=== PATIENT | male | born 1995 | race Caucasian/White ===

== ENCOUNTER → 2017-11-19 | Outpatient (REF) | payer BC | LOC: M LAB REF 16:43 | DX: J02.9 Acute pharyngitis, unspecified (principal) | CPT/HCPCS: 87070 ==

== ENCOUNTER 2021-11-23 10:13 | Day surgery (SDC) | payer OTHER ==
[~2021-11-23] VITALS: Ht 175.3 cm; Wt 100.2 kg
[~2021-11-23 10:13] MED LIST: CELE100C PO; FLON1SPR; LEXA1TAB PO; LR 1,000 ML IV ONE; LUNE2TAB23 PO; TELM1TAB33 PO; TIZA4CAP PO; ZYRT10TA12 PO
[2021-11-23] MEDS ORDERED: LIDOCAINE W/EPINEPHRINE 1% 20ML VIAL As Ordered ONE ×2 (11:10→11:11)
[2021-11-23] MEDS ORDERED: OXYMETAZOLINE 0.05% NASAL SPRAY (AFRIN) As Ordered ONE (11:11)
[2021-11-23] MEDS ORDERED: COCAINE 4% 4ML NASAL SOLUTION BTL As Ordered ONE (11:11)
[2021-11-23] MEDS ORDERED: fentaNYL 250 MCG/5 ML INJECTION As Ordered ONE (11:20)
[2021-11-23] MEDS ORDERED: propofoL 200 MG/20 ML VIAL As Ordered ONE (11:20)
[2021-11-23] MEDS ORDERED: dexameTHASONE 4 MG/ML 1ML VIAL (J1100 PER 1MG) As Ordered ONE (11:20)
[2021-11-23] MEDS ORDERED: ROCURONIUM BROMIDE 50 MG/5 ML VIAL As Ordered ONE (11:20)
[2021-11-23] MEDS ORDERED: MIDAZOLAM INJ 2MG/2ML VIAL (J2250 PER 1MG) As Ordered ONE (11:20)
[2021-11-23] MEDS ORDERED: ONDANSETRON 4MG/2ML VIAL As Ordered ONE (11:20)
[2021-11-23] MEDS ORDERED: LIDOCAINE 2% 100MG/5ML SDV (FOR ANES.) As Ordered ONE (11:20)
[2021-11-23] MEDS ORDERED: ESMOLOL INJ 100MG/10ML VIAL As Ordered ONE (13:11)
[2021-11-23] MEDS ORDERED: SUGAMMADEX SODIUM 500 MG/5 ML VIAL (BRIDION) As Ordered ONE (13:17)
[2021-11-23] MEDS ORDERED: LABETALOL 100MG/20ML VIAL As Ordered ONE (13:33)
[2021-11-23] MEDS ORDERED: hydrALAZINE 20MG/ML 1ML VIAL (J0360 PER 20MG) As Ordered ONE (13:48)
[2021-11-23] MEDS ORDERED: fentaNYL 100 MCG/2 ML INJECTION IV PRN (14:15)
[2021-11-23] MEDS ORDERED: ONDANSETRON 4MG/2ML VIAL IV PRN ×2 (14:15→14:20)
[2021-11-23] MEDS ORDERED: LR 1,000 ML IV SCH ×2 (14:15)
[2021-11-23] MEDS ORDERED: ANEXSIA, NORCO 7.5MG/325MG TABLET(HYDROCODONE/APAP) PO PRN (14:20)
[2021-11-23] MEDS ORDERED: MORPHINE 10 MG/ML 1ML VIAL IV PRN (14:20)
[2021-11-23] MEDS: PERCOCET 5MG/325MG TAB PO PRN ×2 (15:00→15:31)
[2021-11-23] MEDS ORDERED: METOCLOPRAMIDE INJ 10MG/2ML VIAL (J2765 PER 1) IV STA (18:17)
[2021-11-23 19:10] VITALS: BP 122/63
== END 2021-11-23 19:15 | disposition home or self-care (01) ==
LOC: M SDC 10:13
PROVIDERS: ATTEND Otolaryngology
DX: J34.2 Deviated nasal septum (principal); R09.81 Nasal congestion; J34.3 Hypertrophy of nasal turbinates; I10 Essential (primary) hypertension; F43.10 Post-traumatic stress disorder, unspecified; F32.9 Major depressive disorder, single episode, unspecified; K21.9 Gastro-esophageal reflux disease without esophagitis; Z79.899 Other long term (current) drug therapy
CPT/HCPCS: 30140; 30520; 88300; 88304; 88312; C9046; J0360; J1100; J2250; J2270; J2405; J2765; J3010